=== PATIENT | male | born 1985 | race Caucasian/White ===

== ENCOUNTER 2021-02-02 10:37 | Emergency (ER) | payer OTHER ==
[~2021-02-02] VITALS: Ht 172.7 cm; Wt 96.2 kg
[~2021-02-02 10:37] MED LIST: CITA10S; Citalopram HBr40 MG; DIVA250EC PO; HYDACE5 PO; IBUP600 PO; PRED10 PO; Percocet 5-3251 EACH PO; ZONI100 PO
[2021-02-02 11:10] LABS: BASOPHILS ABSOLUTE AUTO 0.07 K/mm3 (0.00-0.23); BASOPHILS PERCENT AUTO 1 % (0-2); EOSINOPHILS ABSOLUTE AUTO 0.08 K/mm3 (0.00-0.68); EOSINOPHILS PERCENT AUTO 1 % (0-6); Hematocrit 45.8 % (37.0-53.0); Hemoglobin 15.4 g/dL (13.5-17.5); IMMATURE GRAN ABSOLUTE AUTO 0.05 K/mm3 (0.00-0.10); IMMATURE GRAN PERCENT AUTO 1 % (0-1); LYMPHOCYTES ABSOLUTE AUTO 2.39 K/mm3 (0.84-5.20); LYMPHOCYTES PERCENT AUTO 27 % (21-46); MONOCYTES PERCENT AUTO 12 % (4-13); Mean Corpuscular HGB 29.4 pg (26.0-34.0); Mean Corpuscular HGB Conc 33.6 g/dL (31.5-36.5); Mean Corpuscular Volume 87 fL (80-100); Mean Platelet Volume 8.6 fL (9.1-12.4); NEUTROPHILS ABSOLUTE AUTO 5.24 K/mm3 (1.96-9.15); NEUTROPHILS PERCENT AUTO 59 % (41-73); NRBC ABSOLUTE 0.07 K/mm3 (0.00-0.02); NRBC Auto 0.8 /100 WBC (0.0-0.2); Platelet Count 235 K/mm3 (150-400); RDW Coefficient Variation 12.6 % (11.7-14.2); RDW Standard Deviation 40.2 fL (35.1-46.3); Red Blood Cell Count 5.24 M/mm3 (4.30-5.90); White Blood Cell Count 8.93 K/mm3 (4.00-11.30)
[2021-02-02] MEDS ORDERED: ATOM10 PO (11:22)
[2021-02-02 11:35] LABS: Alanine Aminotransfer (ALT/SGP 50 U/L (12-78); Albumin, Blood 3.7 g/dL (3.4-5.0); Albumin/Globulin Ratio 0.9 (0.8-1.8); Alk Phos 79 U/L (50-136); Anion Gap 4 mmol/L (6-16); Aspartate Aminotrans (AST/SGOT 16 U/L (12-37); Bilirubin, Total 0.3 mg/dL (0.1-1.0); Blood Urea Nitrogen 12 mg/dL (8-24); Bun/Creatinine Ratio 13.1 (12.0-20.0); CO2, Blood 27 mmol/L (21-32); Calcium, Blood 9.1 mg/dL (8.5-10.1); Chloride, Blood 107 mmol/L (98-108); Creatinine, Blood 0.91 mg/dL (0.60-1.20); Globulin, Blood 4.1 g/dL (2.2-4.0); Glomerular Filtration Rate >60 (60-); Glucose, Blood 119 mg/dL (70-99); Potassium, Blood 3.8 mmol/L (3.5-5.5); Sodium, Blood 138 mmol/L (136-145); Total Protein, Blood 7.8 g/dL (6.4-8.2); Troponin I <0.015 ng/mL (0.000-0.040)
[2021-02-02] MEDS ORDERED: Protonix40 MG PO (11:56)
== END 2021-02-02 13:00 | disposition home or self-care (01) ==
LOC: ER 10:37
PROVIDERS: Emergency Medicine
DX: R07.9 Chest pain, unspecified (principal); R10.13 Epigastric pain; G40.909 Epilepsy, unspecified, not intractable, without status epilepticus; Z79.899 Other long term (current) drug therapy; Z87.891 Personal history of nicotine dependence
CPT/HCPCS: 36415; 71045; 80053; 84484; 85025; 93005; 93010; 99284-25; A9270

== ENCOUNTER 2021-03-19 07:28 | Day surgery (SDC) | payer OTHER ==
[~2021-03-19] VITALS: Ht 172.7 cm; Wt 97.5 kg
[~2021-03-19 07:28] MED LIST changes: +ATOM10 PO; +Protonix40 MG PO
[2021-03-19] MEDS ORDERED: Hair, Skin & N1 EACH (07:55)
[2021-03-19] MEDS ORDERED: Acetaminophen325 M1 (07:55)
== END 2021-03-19 09:35 | disposition home or self-care (01) ==
LOC: ORSCSDS 07:28
PROVIDERS: Student in an Organized Health Care Education/Training Program
PROC: 0DB58ZX Excision of Esophagus, Via Natural or Artificial Opening Endoscopic, Diagnostic (ICD-10-PCS; principal; 2021-03-19 08:45)
PROC: 0DB48ZX Excision of Esophagogastric Junction, Via Natural or Artificial Opening Endoscopic, Diagnostic (ICD-10-PCS; principal; 2021-03-19 08:45)
PROC: 0DB68ZX Excision of Stomach, Via Natural or Artificial Opening Endoscopic, Diagnostic (ICD-10-PCS; principal; 2021-03-19 08:45)
DX: K21.9 Gastro-esophageal reflux disease without esophagitis (principal); R12 Heartburn; K29.70 Gastritis, unspecified, without bleeding; G47.33 Obstructive sleep apnea (adult) (pediatric); E66.9 Obesity, unspecified; Z68.32 Body mass index [BMI] 32.0-32.9, adult; Z79.899 Other long term (current) drug therapy
CPT/HCPCS: 88305; 88342; J2001; J2250; J2405; J2704; J7120

== ENCOUNTER 2022-05-19 16:57 | Emergency (ER) | payer OTHER ==
[~2022-05-19] VITALS: Ht 172.7 cm; Wt 95.2 kg
[~2022-05-19 16:57] MED LIST changes: +Acetaminophen325 M1; +Hair, Skin & N1 EACH
[2022-05-19] MEDS ORDERED: ERYT.5TO RIGHTEYE (17:47)
== END 2022-05-19 17:45 | disposition home or self-care (01) ==
LOC: ER 16:57
DX: H10.9 Unspecified conjunctivitis (principal); Z79.899 Other long term (current) drug therapy; Z88.8 Allergy status to other drugs, medicaments and biological substances; Z87.891 Personal history of nicotine dependence
CPT/HCPCS: 99282

== ENCOUNTER 2023-09-26 17:33 | Emergency (ER) | payer MEDICARE, OTHER ==
[~2023-09-26] VITALS: Ht 175.3 cm; Wt 90.3 kg
[~2023-09-26 17:33] MED LIST changes: +ERYT.5TO RIGHTEYE
[2023-09-26 17:37] VITALS: BP 140/84
== END 2023-09-26 18:50 | disposition home or self-care (01) ==
LOC: ER 17:33
DX: R05.9 Cough, unspecified (principal); G40.909 Epilepsy, unspecified, not intractable, without status epilepticus; Z96.82 Presence of neurostimulator; Z88.8 Allergy status to other drugs, medicaments and biological substances; Z79.899 Other long term (current) drug therapy; Z87.891 Personal history of nicotine dependence
CPT/HCPCS: 71046; 99283-25

== ENCOUNTER 2023-11-09 14:18 | Emergency (ER) | payer MEDICARE, OTHER ==
[~2023-11-09] VITALS: Ht 175.3 cm; Wt 88.5 kg
[2023-11-09 16:21] LABS: BASOPHILS ABSOLUTE AUTO 0.07 K/mm3 (0.00-0.23); BASOPHILS PERCENT AUTO 1 % (0-2); EOSINOPHILS ABSOLUTE AUTO 0.07 K/mm3 (0.00-0.68); EOSINOPHILS PERCENT AUTO 1 % (0-6); Hematocrit 46.5 % (37.0-53.0); Hemoglobin 15.4 g/dL (13.5-17.5); IMMATURE GRAN ABSOLUTE AUTO 0.04 K/mm3 (0.00-0.10); IMMATURE GRAN PERCENT AUTO 0 % (0-1); LYMPHOCYTES ABSOLUTE AUTO 4.22 K/mm3 (0.84-5.20); LYMPHOCYTES PERCENT AUTO 40 % (21-46); MONOCYTES PERCENT AUTO 9 % (4-13); Mean Corpuscular HGB 29.5 pg (26.0-34.0); Mean Corpuscular HGB Conc 33.1 g/dL (31.5-36.5); Mean Corpuscular Volume 89 fL (80-100); Mean Platelet Volume 9.2 fL (9.1-12.4); NEUTROPHILS ABSOLUTE AUTO 5.34 K/mm3 (1.96-9.15); NEUTROPHILS PERCENT AUTO 50 % (41-73); Platelet Count 252 K/mm3 (150-400); RDW Standard Deviation 42.4 fL (35.1-46.3); Red Blood Cell Count 5.22 M/mm3 (4.30-5.90); White Blood Cell Count 10.64 K/mm3 (4.00-11.30)
[2023-11-09 16:39] LABS: Albumin, Blood 3.9 g/dL (3.4-5.0); Bilirubin, Total 0.2 mg/dL (0.1-1.0); Bun/Creatinine Ratio 13.5 (12.0-20.0); Calcium, Blood 8.7 mg/dL (8.5-10.1); Creatinine, Blood 0.96 mg/dL (0.60-1.20); Potassium, Blood 4.1 mmol/L (3.5-5.5); Total Protein, Blood 7.9 g/dL (6.4-8.2)
[2023-11-09 16:43] VITALS: BP 127/89
== END 2023-11-09 19:33 | disposition home or self-care (01) ==
LOC: ER 14:18
PROVIDERS: Physician Assistant
DX: R06.00 Dyspnea, unspecified (principal); Z89.511 Acquired absence of right leg below knee; G40.909 Epilepsy, unspecified, not intractable, without status epilepticus; Z88.8 Allergy status to other drugs, medicaments and biological substances; Z79.899 Other long term (current) drug therapy
CPT/HCPCS: 70360; 71046; 80053; 85025; 99285-25

== ENCOUNTER 2024-12-16 17:02 | Emergency (ER) | payer MEDICARE ==
[~2024-12-16] VITALS: Ht 175.3 cm; Wt 68.0 kg
[2024-12-16 17:44] LABS: BASOPHILS ABSOLUTE AUTO 0.07 K/mm3 (0.00-0.23); BASOPHILS PERCENT AUTO 1 % (0-2); EOSINOPHILS ABSOLUTE AUTO 0.09 K/mm3 (0.00-0.68); EOSINOPHILS PERCENT AUTO 1 % (0-6); Hemoglobin 15.2 g/dL (13.5-17.5); IMMATURE GRAN ABSOLUTE AUTO 0.05 K/mm3 (0.00-0.10); IMMATURE GRAN PERCENT AUTO 0 % (0-1); LYMPHOCYTES ABSOLUTE AUTO 3.09 K/mm3 (0.84-5.20); LYMPHOCYTES PERCENT AUTO 25 % (21-46); MONOCYTES PERCENT AUTO 7 % (4-13); Mean Corpuscular HGB 30.7 pg (26.0-34.0); Mean Corpuscular HGB Conc 34.5 g/dL (31.5-36.5); Mean Corpuscular Volume 89 fL (80-100); Mean Platelet Volume 9.2 fL (9.1-12.4); NEUTROPHILS ABSOLUTE AUTO 8.42 K/mm3 (1.96-9.15); NEUTROPHILS PERCENT AUTO 67 % (41-73); Platelet Count 255 K/mm3 (150-400); RDW Coefficient Variation 12.9 % (11.7-14.2); RDW Standard Deviation 41.8 fL (35.1-46.3); Red Blood Cell Count 4.95 M/mm3 (4.30-5.90); White Blood Cell Count 12.62 K/mm3 (4.00-11.30)
[2024-12-16 18:07] LABS: Bilirubin, Total 0.5 mg/dL (0.1-1.0); Bun/Creatinine Ratio 15.9 (12.0-20.0); Calcium, Blood 8.9 mg/dL (8.5-10.1); Creatinine, Blood 1.07 mg/dL (0.60-1.20); Globulin, Blood 4.1 g/dL (2.2-4.0); Potassium, Blood 3.3 mmol/L (3.5-5.5); Total Protein, Blood 8.1 g/dL (6.4-8.2)
[2024-12-16 19:11] VITALS: BP 101/63
== END 2024-12-16 19:12 | disposition home or self-care (01) ==
LOC: ER 17:02
PROVIDERS: Student in an Organized Health Care Education/Training Program
DX: R00.2 Palpitations (principal); Z79.899 Other long term (current) drug therapy; Z88.8 Allergy status to other drugs, medicaments and biological substances
CPT/HCPCS: 71046; 80053; 84443; 84484; 85025; 93005; 93010; 99284-25